=== PATIENT | female | born 1985 | race American Indian/Alaskan Native ===

== ENCOUNTER 2018-03-05 14:55 | Emergency (ER) | payer MEDICAID ==
[2018-03-05 14:56] VITALS: BMI 24.0
[2018-03-05 15:49] VITALS: O2SAT 100
[2018-03-05] MEDS ORDERED: Naloxone 0.4 mg/ml Inj (Adult) IVP ONE (16:14)
[2018-03-05] MEDS ORDERED: Naloxone 0.4 mg/ml Inj (Adult) ONE (16:27)
--- NOTE | 2018-03-05 17:32 | C.PDOC ---
History Of Present Illness 32 y/o female brought in by ambulance with complaints of feeling lethargic. She denies any associated fever, chills, dizziness, headaches, chest pain, SOB, nausea, vomiting, rashes, or other complaints. Of note, patient was seen in the ED at [facility] last night, and left AMA at 3:00am. Patient reports PMHx of bipolar disorder and is not currently taking any medications. Currently patient resides in a correction. Time Seen by Provider: 03/05/18 16:09 Chief Complaint (Nursing): Altered Mental Status History Per: Patient History/Exam Limitations: None Onset/Duration Of Symptoms: Hrs Current Symptoms Are (Timing): Still Present Past Medical History Reviewed: Historical Data, Nursing Documentation, Vital Signs Vital Signs: Last Vital Signs Temp 98 F 03/05/18 15:38 Pulse 88 03/05/18 16:43 Resp 16 03/05/18 16:43 BP 77/49 L 03/05/18 15:38 Pulse Ox 100 03/05/18 16:43 - Medical History PMH: Bipolar Disorder, HTN Denies: Diabetes, Hepatitis, HIV, Seizures, Sexually Transmitted Disease Family History: States: Unknown Family Hx - Social History Hx Alcohol Use: No Hx Substance Use: No - Immunization History Hx Tetanus Toxoid Vaccination: No Hx Influenza Vaccination: No Hx Pneumococcal Vaccination: No Review Of Systems Constitutional: Positive for: Other (Lethargy). Negative for: Fever, Chills Eyes: Negative for: Vision Change Cardiovascular: Negative for: Chest Pain, Palpitations Respiratory: Negative for: Shortness of Breath Gastrointestinal: Negative for: Nausea, Vomiting Musculoskeletal: Negative for: Neck Pain, Back Pain Skin: Negative for: Rash Neurological: Negative for: Weakness, Headache, Dizziness Physical Exam - Physical Exam Appears: Non-toxic, No Acute Distress, Other (lethargic appearing, easily arousable) Skin: Warm, Dry Head: Atraumatic, Normacephalic Eye(s): bilateral: PERRL (pinpoint pupils), EOMI, right: Other (Right eye lateral deviation, baseline) Oral Mucosa: Moist Neck: Normal ROM Chest: Symmetrical Cardiovascular: Rhythm Regular, No Murmur Respiratory: Normal Breath Sounds, No Accessory Muscle Use Gastrointestinal/Abdominal: Soft, No Tenderness, No Distention Extremity: Bilateral: Atraumatic, Normal Color And Temperature Neurological/Psych: Normal Speech, Other (Drowsy but arousable) ED Course And Treatment O2 Sat by Pulse Oximetry: 100 (on RA) Pulse Ox Interpretation: Normal Medical Decision Making Medical Decision Making: Plan: --Narcan No improvement after Narcan given. homeless, correction, continued substance abuse 1900: clinically sober Disposition Doctor Will See Patient In The: Office Counseled Patient/Family Regarding: Studies Performed, Diagnosis - Disposition Disposition: HOME/ ROUTINE Disposition Time: 18:56 Condition: GOOD Forms: [employer] (Bulgarian) - Clinical Impression Clinical Impression: Substance abuse, Homeless single person - Scribe Statement The provider has reviewed the documentation as recorded by the Elise Zendejas Provider Attestation: All medical record entries made by the Elise were at my direction and personally dictated by me. I have reviewed the chart and agree that the record accurately reflects my personal performance of the history, physical exam, medical decision making, and the department course for this patient. I have also personally directed, reviewed, and agree with the discharge instructions and disposition.
[2018-03-05 19:15] VITALS: BP 100/58; PULSE 80; RESP 18; TEMP 98.2
== END 2018-03-05 19:15 | disposition home or self-care (01) ==
LOC: C.ER 14:55
DX: F19.10 Other psychoactive substance abuse, uncomplicated (principal); Z59.0 Homelessness; I10 Essential (primary) hypertension
CPT/HCPCS: 82948; 96374; 99285; J2310